=== PATIENT | male | born 2000 | race Caucasian/White ===

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

== ENCOUNTER 2019-03-24 06:27 | Day surgery (SDC) | payer BC ==
[2019-03-24] MEDS ORDERED: HYDROGEN PEROXIDE 118 ML (07:57)
[2019-03-24] MEDS ORDERED: OXYCODONE/ACETAMINOPHEN (5/325) TAB PO ×3 (08:00→09:30)
[2019-03-24] MEDS ORDERED: DIPHENHYDRAMINE 50 MG INJ IV (08:00)
[2019-03-24] MEDS ORDERED: FENTAnyl 50 MCG/ML VIAL IV ×3 (08:00)
[2019-03-24] MEDS ORDERED: MEPERIDINE 25 MG INJ IV (08:00)
[2019-03-24] MEDS ORDERED: HYDROmorphONE 1 MG/5 ML IV SYRINGE IV ×3 (08:00)
[2019-03-24] MEDS ORDERED: KETOROLAC 30 MG INJ IV (08:00)
[2019-03-24] MEDS ORDERED: ONDANSETRON 4 MG INJ IV ×2 (08:00→09:30)
[2019-03-24] MEDS ORDERED: CEFAZOLIN 1 GM INJ (08:07)
[2019-03-24] MEDS ORDERED: ROCURONIUM 50 MG INJ (08:07)
[2019-03-24] MEDS ORDERED: PROPOFOL 200 MG INJ (08:07)
[2019-03-24] MEDS ORDERED: FENTAnyl 50 MCG/ML VIAL (08:07)
[2019-03-24] MEDS ORDERED: PROPOFOL 20 ML (08:07)
[2019-03-24] MEDS ORDERED: METOCLOPRAMIDE 10 MG INJ (08:07)
[2019-03-24] MEDS ORDERED: GLYCOPYRROLATE 0.4 MG INJ (08:09)
[2019-03-24] MEDS ORDERED: NEOSTIGMINE 3 MG/3 ML SYRINGE (08:09)
[2019-03-24] MEDS ORDERED: KETOROLAC 30 MG INJ (08:09)
[2019-03-24] MEDS: CEFAZOLIN 2 GM/50 ML (PMX) 50 ML IVPB (08:26)
[2019-03-24] MEDS ORDERED: BUPIVACAINE 0.25% (MPF) 30 ML INJ (08:29)
[2019-03-24] MEDS: BUPIVACAINE 0.25%/EPI (SDV) 10 ML INJ (08:55)
[2019-03-24] MEDS: LIDOCAINE 1% (MPF) 30 ML INJ (08:55)
[2019-03-24] MEDS ORDERED: morphine 10 MG INJ IM (09:30)
[2019-03-24] MEDS ORDERED: IBUPROFEN 600 MG TAB PO (09:30)
== END 2019-03-24 11:22 | disposition home or self-care (01) ==
LOC: SDS 06:27
DX: L05.01 Pilonidal cyst with abscess (principal); F12.90 Cannabis use, unspecified, uncomplicated; Z87.891 Personal history of nicotine dependence
CPT/HCPCS: 11772; 87070; 87075; 87102; 87116; 88304